=== PATIENT | male | born 1945 | race Hispanic/Latino ===

== ENCOUNTER 2017-06-24 14:08 | Emergency (ER) | payer MEDICARE ==
[2017-06-24] MEDS ORDERED: NORCO 5/325 PO ONE (14:27)
[2017-06-24] MEDS ORDERED: BOOSTRIX IM ONE (14:28)
--- NOTE | 2017-06-24 14:33 | Emergency Department Report ---
HPI - General Chief Complaint: Head Injury Time Seen by Provider: 06/24/17 14:20 - HPI HPI: Room 2 The patient is 71-year-old male presenting with a chief complaint of forehead laceration after fall. The patient states he was going to the bathroom when he tripped over his pants that he had pulled down and fell forward striking his forehead on the sink. Patient denies loss of consciousness. Patient complains of a headache which she gets a /10. EMS was called and transported the patient to the ED. Location: Head Duration: Just prior to arrival Quality: Headache Severity: 610 Modifying factors: [see above] Context: [see above] Mode of transportation: [not driving] ED Past Medical Hx - Past Medical History Previous Medical History?: Yes Hx Hypertension: Yes Hx Diabetes: Yes - Surgical History Past Surgical History?: No - Family History Family history: no significant - Social History Smoking Status: Never Smoker Substance Use Type: None - Medications Home Medications: Home Medications Medication Instructions Recorded Confirmed Last Taken Type HYDROcodone/APAP 5-325 [[place] 1 - 2 each PO Q6HR PRN #10 tablet 06/24/17 Unknown Rx 5/325] Ibuprofen [Motrin 800 MG tab] 800 mg PO Q8HR PRN #20 tablet 06/24/17 Unknown Rx ED Review of Systems ROS: Stated complaint: FALL/FORHEAD LACERATION Other details as noted in HPI Skin: other (forehead laceration) Neurological: headache Physical Exam - Physical Exam Vital Signs: Vital Signs 06/24/17 14:16 Temperature 97.9 F Pulse Rate 94 H Respiratory 16 Rate Blood Pressure 139/90 O2 Sat by Pulse 97 Oximetry Physical Exam: GENERAL: The patient is well-developed well-nourished male sitting on the edge of stretcher with obvious forehead wound not appearing to be in acute distress. [] HEENT: Normocephalic. Approximately 2.5 cm linear laceration to the right forehead with an equivalent sized abrasion inferior to it. Extraocular motions are intact. Patient has moist mucous membranes. NECK: Supple. No step offs. CHEST/LUNGS: Clear to auscultation. There is no respiratory distress noted. HEART/CARDIOVASCULAR: Regular. There is no tachycardia. There is no gallop rub or murmur. ABDOMEN: Abdomen is soft, nontender. Patient has normal bowel sounds. There is no abdominal distention. SKIN: Approximately 2.5 cm linear laceration to the right forehead with an equivalent sized abrasion inferior to it.. There is no diaphoresis. NEURO: The patient is awake, alert, and oriented. The patient is cooperative. The patient has no focal neurologic deficits. The patient has normal speech MUSCULOSKELETAL: There is no limitation range of motion. ED Course Vital Signs 06/24/17 14:16 Temperature 97.9 F Pulse Rate 94 H Respiratory 16 Rate Blood Pressure 139/90 O2 Sat by Pulse 97 Oximetry ED Medical Decision Making - Radiology Data Radiology results: report reviewed (CT head, CT cervical spine), image reviewed (CT head, CT cervical spine) [address] [address] Cat Scan Report Signed Patient: TAWANDA DOMÍNGUEZ MR#: [id number] : 1945 Acct:[id number] Age/Sex: 71 / M ADM Date: 06/24/17 Loc: ED Attending Dr: Ordering Physician: JESS BELL MD Date of Service: 06/24/17 Procedure(s): CT head/brain wo con Accession Number(s): [id number] cc: JESS BELL MD FINAL REPORT EXAM: CT HEAD/BRAIN WO CON HISTORY: headache after fall TECHNIQUE: CT of the head was performed without intravenous contrast. PRIORS: None. FINDINGS: The ventricles are normal in shape and position. The ventricles are nondilated. No intracranial hemorrhage, mass, mass effect, midline shift or evidence of acute ischemic infarct. The basilar cisterns are patent. The paranasal sinuses are clear. There is a right frontal scalp laceration. The calvarium is intact. Calcifications are seen along the posterior aspects of both globes. The mastoid air cells are clear. IMPRESSION: 1. No acute intracranial abnormality. 2. Right frontal scalp laceration. 3. Nonspecific globe calcifications. Transcribed By: MG Dictated By: LATRELL LOCKWOOD MD Electronically Authenticated By: LATRELL LOCKWOOD MD Signed Date/Time: 06/24/17 163 DD/ 163 TD/TT: 06/24/[address] [address] Cat Scan Report Signed Patient: TAWANDA DOMÍNGUEZ MR#: [id number] : 1945 Acct:[id number] Age/Sex: 71 / M ADM Date: 06/24/17 Loc: ED Attending Dr: Ordering Physician: JESS BELL MD Date of Service: 06/24/17 Procedure(s): CT cervical spine wo con Accession Number(s): [id number] cc: JESS BELL MD FINAL REPORT EXAM: CT CERVICAL SPINE WO CON HISTORY: hyperextension during fall TECHNIQUE: CT of the cervical spine was performed without intravenous contrast. Reconstructions were included in the coronal and sagittal planes. PRIORS: None. FINDINGS: No cervical spine fracture or subluxation. The prevertebral soft tissues are normal. Multilevel degenerative changes of the cervical spine are seen with multilevel neural foraminal narrowing. No severe spinal stenosis. Post left thyroidectomy. A right thyroid nodule is seen with peripheral calcifications measuring 9 millimeters. IMPRESSION: 1. No acute cervical spine abnormality. 2. Right thyroid nodule. Recommend further evaluation with thyroid ultrasound. Transcribed By: MG Dictated By: LATRELL LOCKWOOD MD Electronically Authenticated By: LATRELL LOCKWOOD MD Signed Date/Time: 06/24/171723 DD/ 23 TD/TT: 06/24/171723 - Medical Decision Making Thyroid nodule seen on CT discussed with patient. Importance of prompt follow- up was discussed. Patient verbalized understanding. 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 Again patient understands importance of following up - Differential Diagnosis closed head injury, forehead laceration, Critical care attestation.: If time is entered above; I have spent that time in minutes in the direct care of this critically ill patient, excluding procedure time. ED Disposition Clinical Impression: Closed head injury, Forehead laceration, Thyroid nodule Disposition: - TO HOME OR SELFCARE Is pt being admited?: No Does the pt Need Aspirin: No Condition: Stable Instructions: Skin Adhesive Care (ED), Laceration (ED), Thyroid Nodules (ED) Additional Instructions: Return to the emergency department immediately should you develop worsening symptoms, fever, inability to tolerate food or liquid or any other concerns. Prescriptions: HYDROcodone/APAP 5-325 [[place] 5/325] 1 - 2 each PO Q6HR PRN #10 tablet PRN Reason: Pain Ibuprofen [Motrin 800 MG tab] 800 mg PO Q8HR PRN #20 tablet PRN Reason: Pain Referrals: RICK PALENCIA MD [Staff Physician] - [facility] (It is important that you follow up with your primary physician for further evaluation of the thyroid nodule seen on your CT scan.) Time of Disposition: 17:54
--- NOTE | 2017-06-24 16:37 | Cat Scan Report ---
FINAL REPORT EXAM: CT HEAD/BRAIN WO CON HISTORY: headache after fall TECHNIQUE: CT of the head was performed without intravenous contrast. PRIORS: None. FINDINGS: The ventricles are normal in shape and position. The ventricles are nondilated. No intracranial hemorrhage, mass, mass effect, midline shift or evidence of acute ischemic infarct. The basilar cisterns are patent. The paranasal sinuses are clear. There is a right frontal scalp laceration. The calvarium is intact. Calcifications are seen along the posterior aspects of both globes. The mastoid air cells are clear. IMPRESSION: 1. No acute intracranial abnormality. 2. Right frontal scalp laceration. 3. Nonspecific globe calcifications.
--- NOTE | 2017-06-24 17:30 | Cat Scan Report ---
FINAL REPORT EXAM: CT CERVICAL SPINE WO CON HISTORY: hyperextension during fall TECHNIQUE: CT of the cervical spine was performed without intravenous contrast. Reconstructions were included in the coronal and sagittal planes. PRIORS: None. FINDINGS: No cervical spine fracture or subluxation. The prevertebral soft tissues are normal. Multilevel degenerative changes of the cervical spine are seen with multilevel neural foraminal narrowing. No severe spinal stenosis. Post left thyroidectomy. A right thyroid nodule is seen with peripheral calcifications measuring 9 millimeters. IMPRESSION: 1. No acute cervical spine abnormality. 2. Right thyroid nodule. Recommend further evaluation with thyroid ultrasound.
[2017-06-24] MEDS ORDERED: NACL 0.9% 500 ML IR ONE (17:37)
[2017-06-24] MEDS ORDERED: TRIPLE ANTIBIOTIC TP ONE ×2 (17:55→18:33)
[2017-06-24] MEDS ORDERED: NACL 0.9% IR ONE (18:35)
[2017-06-24 19:27] VITALS: BP 168/73
== END 2017-06-24 20:27 | disposition home or self-care (01) ==
LOC: ED 14:08
DX: S01.81XA Laceration without foreign body of other part of head, initial encounter (principal); I10 Essential (primary) hypertension; E11.9 Type 2 diabetes mellitus without complications; E04.1 Nontoxic single thyroid nodule; W18.30XA Fall on same level, unspecified, initial encounter; Y93.89 Activity, other specified; Y92.89 Other specified places as the place of occurrence of the external cause; Y99.8 Other external cause status
CPT/HCPCS: 70450; 72125; 90471; 90715; 99284; A6250